=== PATIENT | male | born 1975 | race Hispanic/Latino ===

== ENCOUNTER 2021-06-11 16:52 | Inpatient (IN) | payer MEDICAID ==
[2021-06-11 21:17] LABS: Alanine Aminotransferase 14 units/L (7-56); BUN/Creatinine Ratio 12; Blood Urea Nitrogen 11 mg/dL (9-20); Calcium 9.5 mg/dL (8.4-10.2); Chol/HDL Ratio 4.71 %; HDL Cholesterol 38 mg/dL (40-59); Hemolysis Index 11; LDL Cholesterol,Direct 132 mg/dL (50-130)
[2021-06-11 21:19] LABS: Basophils # (Auto) 0.1 K/mm3 (0.0-0.1); Basophils % (Auto) 1.1 % (0.0-1.8); Eosinophils # (Auto) 0.6 K/mm3 (0.0-0.4); Eosinophils % (Auto) 12.5 % (0.0-4.3); Hematocrit 49.1 % (35.5-45.6); Hemoglobin 16.6 gm/dl (11.8-15.2); Lymphocytes # (Auto) 1.2 K/mm3 (1.2-5.4); Lymphocytes % (Auto) 25.1 % (13.4-35.0); Mean Corpuscular HGB Conc 34 % (32-34); Mean Corpuscular Volume 90 fl (84-94); Monocytes # (Auto) 0.5 K/mm3 (0.0-0.8); Monocytes % (Auto) 9.3 % (0.0-7.3); Platelet Count 217 K/mm3 (140-440); Red Blood Count 5.44 M/mm3 (3.65-5.03); Red Cell Distribution Width 13.5 % (13.2-15.2)
[2021-06-11] MEDS: DOXEPIN 10 MG CAP PO SCH (21:31)
[2021-06-11 21:38] LABS: Albumin 4.8 g/dL (3.9-5)
--- NOTE | 2021-06-12 09:59 | History and Physical Report ---
GP History & Physical - History of Present Illness Date of admission: 06/11/21 Date of Examination: 06/12/21 Reason for Admission: Danger to self, Failure of Outpatient Treatment History of Present Illness: Per Admission Note: Patient arrived on the unit at 1948. He arrived by stretcher and EMS. He states he went to the hospital to find out what is wrong with his right side and right leg. He states they sent him here for his bipolar. Patient states he tells them that he will not take psych meds because he [place] and if he has psych meds in him it is the same as driving drunk. Patient states he took 10-15 Gabapentin but he was not trying to kill himself. He states he was trying to make the pain in his right side go away. Paula Bauer is a 45y/o male patient who states he was admitted due to his leg and taking too many pills to stop the pain. He says he's depressed due to the pain. He is anxious and irritable. He says "I took pain meds trying to ease the pain. He says when I get out of here I'm going to take some more. I'm dying in all this pain. The patient says he can barely move his leg, and is having groin pain. He says he fell backward at work and hurt his leg. He denies being on any psych meds. He also denies any illicit drug use outside of weed. He denies hallucinations of any kind. The patient says he has a history bipolar but he doesn't take any meds. He says "I don't like these types of doctors." He denies hallucinations of any kind. Discussed the patient leg and groin pain with the nurse and advised her to let the [place] [facility] hospitalist know. She says she has already made the hospitalist aware of the patient's concerns and symptoms. PAST PSYCHIATRIC HISTORY: Diagnoses: Bipolar Suicide attempts or Self-harm behavior: Denies Prior psychiatric hospitalizations: Denies Substance Abuse history: "Roca" Previous psychiatric medications tried: Denies Outpatient treatment: Denies PAST MEDICAL HISTORY: None reported or document Family Psychiatric History: None reported or documented SOCIAL HISTORY Marital Status: Single Living Arrangements: with family Employment Status: Disabled Access to guns/weapons: denies Education: History of Abuse: denies Legal History: denies REVIEW OF SYSTEMS Constitutional: Negative for weight loss ENT: Negative for stridor Respiratory: Negative for cough or hemoptysis All other systems reviewed and are negative MENTAL STATUS EXAMINATION General Appearance and Behavior: Age appropriate, wearing appropriate clothes, cooperative, good eye contact, irritable at times Cooperation: cooperative Psychomotor Behavior: Psychomotor normal Mood: depressed Affect and affective range: congruent with stated mood Thought Process: impaired Thought Content: SI, depression Speech: Normal volume, Regular rate and rhythm Suicidal Ideation: Yes due to pain Homicidal Ideation: Denies hallucination: Denies Delusions: None elicited Impulse Control: Intact Insight and Judgment: Poor Memory: Intact Attention: Divided Orientation: Alert and oriented Diagnoses: Bipolar Disorder Treatment Plan Patient admitted for inpatient psychiatric evaluation, medication adjustment and close monitoring The patient's behavior, mood, sleep and appetite will be closely monitored. Patient enrolled in individual and group therapeutic sessions and encouraged to attend. Patient provided with a safe and structured environment. Patient's physical health needs will be addressed by the Hospitalist. Hospitalist Consulted Labs including CBC, CMP, Lipid profile and Hemoglobin A1C levels ordered for baseline reference Social Assessment will be completed and the Asset Management Analyst will work with patient and family to ensure a suitable and safe disposition Medication adjustment will be made as clinically indicated Start Cymbalta 30mg po daily Start Vistaril 25mg po BID Doxepin 10mg po qhs for insomnia Usual Wellness Catholic/Preservation: - Start Trazodone 50 mg po QHS & 50 mg po QHS PRN between 10 PM & 2 AM for insomnia - Start Melatonin 5 mg po QHS to promote circadian rhythm The patient agreed on the treatment plan, understood the risk, benefit, alternative treatment, potential consequence of no treatment, and gave informed consent. Estimated days: 7 Post hospital care: primary care provider, psychiatric provider Case staffed with Dr. Patel Legal Status: Voluntary Reaction to Hospitalization: Accepting Medications and Allergies Allergies Allergy/AdvReac Type Severity Reaction Status Date / Time orange Allergy Severe Anaphylaxis Verified 06/12/21 03:31 trazodone Allergy Intermediate Itching Verified 06/12/21 03:28 ketorolac [From Toradol] Allergy Mild Itching Verified 06/12/21 03:28 ascorbic acid Allergy Anaphylaxis Verified 06/12/21 07:26 cyclobenzaprine AdvReac Intermediate Nausea Verified 06/11/21 20:14 [From Flexeril] hyoscyamine [From Levsin] AdvReac Intermediate Nausea Verified 06/11/21 20:15 naproxen [From Naprosyn] AdvReac Intermediate Vomiting Verified 06/11/21 20:16 tramadol AdvReac Mild Itching Verified 06/12/21 03:26 Home Medications Medication Instructions Recorded Confirmed Last Taken Type No Known Home Medications [No 06/11/21 06/11/21 Unknown History Reported Home Medications] Active Meds: Active Medications Doxepin HCl (Doxepin 10 Mg Cap) 10 mg PO QHS [facility] Last Admin: 06/11/21 21:31 Dose: 10 mg Documented by: Nicotine (Nicotine 21 Mg/24 Hr Patch) 21 mg TD QDAY [facility] Results - Results Labs/Vitals: Laboratory Last Values WBC 4.9 K/mm3 (4.5-11.0) 06/11/21 20:43 RBC 5.44 M/mm3 (3.65-5.03) H 06/11/21 20:43 Hgb 16.6 gm/dl (11.8-15.2) H 06/11/21 20:43 Hct 49.1 % (35.5-45.6) H 06/11/21 20:43 MCV 90 fl (84-94) 06/11/21 20:43 MCH 31 pg (28-32) 06/11/21 20:43 MCHC 34 % (32-34) 06/11/21 20:43 RDW 13.5 % (13.2-15.2) 06/11/21 20:43 Plt Count 217 K/mm3 (140-440) 06/11/21 20:43 Lymph % (Auto) 25.1 % (13.4-35.0) 06/11/21 20:43 [place] % (Auto) 9.3 % (0.0-7.3) H 06/11/21 20:43 Eos % (Auto) 12.5 % (0.0-4.3) H 06/11/21 20:43 Baso % (Auto) 1.1 % (0.0-1.8) 06/11/21 20:43 Lymph # (Auto) 1.2 K/mm3 (1.2-5.4) 06/11/21 20:43 [place] # (Auto) 0.5 K/mm3 (0.0-0.8) 06/11/21 20:43 Eos # (Auto) 0.6 K/mm3 (0.0-0.4) H 06/11/21 20:43 Baso # (Auto) 0.1 K/mm3 (0.0-0.1) 06/11/21 20:43 Seg Neutrophils % 52.0 % (40.0-70.0) 06/11/21 20:43 Seg Neutrophils # 2.5 K/mm3 (1.8-7.7) 06/11/21 20:43 Sodium 139 mmol/L (137-145) 06/11/21 20:43 Potassium 4.9 mmol/L (3.6-5.0) 06/11/21 20:43 Chloride 101.6 mmol/L (98-107) 06/11/21 20:43 Carbon Dioxide 29 mmol/L (22-30) 06/11/21 20:43 Anion Gap 13 mmol/L 06/11/21 20:43 BUN 11 mg/dL (9-20) 06/11/21 20:43 Creatinine 0.9 mg/dL (0.8-1.3) 06/11/21 20:43 Estimated GFR > 60 ml/min 06/11/21 20:43 BUN/Creatinine Ratio 12 % 06/11/21 20:43 Glucose 92 mg/dL (75-100) 06/11/21 20:43 POC Glucose 95 mg/dL (70-105) 06/12/21 06:14 Hemoglobin A1c 5.1 % (4-6) 06/11/21 20:43 Calcium 9.5 mg/dL (8.4-10.2) 06/11/21 20:43 Total Bilirubin 0.30 mg/dL (0.1-1.2) 06/11/21 20:43 AST 17 units/L (5-40) 06/11/21 20:43 ALT 14 units/L (7-56) 06/11/21 20:43 Alkaline Phosphatase 78 units/L (35-129) 06/11/21 20:43 Total Protein 7.3 g/dL (6.3-8.2) 06/11/21 20:43 Albumin 4.8 g/dL (3.9-5) 06/11/21 20:43 Albumin/Globulin Ratio 1.9 % 06/11/21 20:43 Triglycerides 162 mg/dL (2-149) H 06/11/21 20:43 Cholesterol 179 mg/dL (50-199) 06/11/21 20:43 LDL Cholesterol Direct 132 mg/dL (50-130) H 06/11/21 20:43 HDL Cholesterol 38 mg/dL (40-59) L 06/11/21 20:43 Cholesterol/HDL Ratio 4.71 % 06/11/21 20:43 TSH 1.030 mlU/mL (0.270-4.200) 06/11/21 20:43 Last Vital Signs Temp 98.8 F 06/11/21 22:00 Pulse 95 H 06/11/21 22:00 Resp 18 06/11/21 22:00 BP 117/75 06/11/21 22:00 Pulse Ox 100 06/11/21 22:00 Physical Examination - Constitutional Vitals: Vital Signs Temp Pulse Resp BP Pulse Ox 98.8 F 95 H 18 117/75 100 06/11/21 22:00 06/11/21 22:00 06/11/21 22:00 06/11/21 22:00 06/11/21 22:00 Temperature -Last 24 Hours Temperature 98.8 F Mental Status Exam - Vital signs Last Vital Signs Temp 98.8 F 06/11/21 22:00 Pulse 95 H 06/11/21 22:00 Resp 18 06/11/21 22:00 BP 117/75 06/11/21 22:00 Pulse Ox 100 06/11/21 22:00 Physician Certification - Certification Statement Physician Certification Statement: This is an acknowledgement statement that PAULA BAUER is a 45 year old M who requires inpatient psychiatric admission for treatment which could reasonably be expected to improve the patient's condition for Estimated period of time patient will need to remain in the hospital: [ ] Plan for post-hospital care: [ ]
[2021-06-12] MEDS: NICOTINE 21 MG/24 HR PATCH TD SCH (10:21)
--- NOTE | 2021-06-12 13:25 | Consultation ---
History of Present Illness - Reason for Consult Consult date: 06/12/21 Medical Management Requesting physician: GREG ADAMS - History of Present Illness 45 YO Male with MDD, Seasonal Allergies, Bipolar Disorder admitted to [facility] unit for psychiatric stabilization. Consult placed by Dr. Adams for medical management. Patient seen and evaluated in the recreation room. Patient denies fever, chills, chest pain, palpitation, productive cough, skin rash, recent contact, or known exposure to COVID-19. No reported nursing events. Patient denies pain at this time. Past History Past Medical History: other (See HPI) Past Surgical History: No surgical history, Other (Reviewed) Social history: single. denies: smoking, alcohol abuse Family history: hypertension Medications and Allergies Allergies Allergy/AdvReac Type Severity Reaction Status Date / Time orange Allergy Severe Anaphylaxis Verified 06/12/21 03:31 trazodone Allergy Intermediate Itching Verified 06/12/21 03:28 ketorolac [From Toradol] Allergy Mild Itching Verified 06/12/21 03:28 ascorbic acid Allergy Anaphylaxis Verified 06/12/21 07:26 cyclobenzaprine AdvReac Intermediate Nausea Verified 06/11/21 20:14 [From Flexeril] hyoscyamine [From Levsin] AdvReac Intermediate Nausea Verified 06/11/21 20:15 naproxen [From Naprosyn] AdvReac Intermediate Vomiting Verified 06/11/21 20:16 tramadol AdvReac Mild Itching Verified 06/12/21 03:26 Home Medications Medication Instructions Recorded Confirmed Last Taken Type Doxepin [SINEquan] 10 mg PO QHS 30 Days #30 capsule 06/15/21 Unknown Rx hydrOXYzine PAMOATE [Vistaril] 25 mg PO BID 30 Days #60 capsule 06/15/21 Unknown Rx Active Meds: Active Medications Doxepin HCl (Doxepin 10 Mg Cap) 10 mg PO QHS [facility] Last Admin: 06/11/21 21:31 Dose: 10 mg Documented by: Duloxetine HCl (Duloxetine 30 Mg Cap) 30 mg PO QDAY [facility] Hydroxyzine Pamoate (Hydroxyzine Pamoate 25 Mg Cap) 25 mg PO BID [facility] Nicotine (Nicotine 21 Mg/24 Hr Patch) 21 mg TD QDAY [facility] Last Admin: 06/12/21 10:21 Dose: 21 mg Documented by: Review of Systems Constitutional: no weight loss, no weight gain, no fever, no chills Ears, nose, mouth and throat: no ear pain, no ear discharge, no tinnitis, no decreased hearing, no nose pain, no nasal discharge Cardiovascular: no chest pain, no palpitations, no rapid/irregular heart beat, n o syncope, no lightheadedness Respiratory: no cough, no shortness of breath Gastrointestinal: no abdominal pain, no nausea, no diarrhea, no constipation, no change in bowel habits Genitourinary Male: no hematuria, no flank pain, no discharge, no urinary frequency Rectal: no pain, no incontinence, no bleeding Musculoskeletal: no neck stiffness, no neck pain, no shooting arm pain, no shooting leg pain Integumentary: no rash, no pruritis, no redness, no sores, no wounds, no jaundice Neurological: no transient paralysis, no tingling, no syncope, no tremors, no ataxia Psychiatric: depression Endocrine: no cold intolerance, no polyphagia, no polydipsia, no polyuria, no nocturia Hematologic/Lymphatic: no easy bruising, no easy bleeding, no lymphadenopathy Allergic/Immunologic: no urticaria, no allergic rhinitis, no persistent infections, no angioedema Exam - Constitutional Vitals: Temp Pulse Resp BP Pulse Ox 98.0 F 91 H 16 107/71 98 06/12/21 08:06 06/12/21 08:06 06/12/21 08:06 06/12/21 08:06 06/12/21 08:06 General appearance: Present: no acute distress, well-nourished - EENT Eyes: Present: PERRL ENT: hearing intact, clear oral mucosa - Neck Neck: Present: supple, normal ROM - Respiratory Respiratory effort: normal Respiratory: bilateral: CTA - Cardiovascular Heart Sounds: Present: S1 & S2. Absent: rub, click - Extremities Extremities: pulses symmetrical, No edema Peripheral Pulses: within normal limits - Abdominal General gastrointestinal: Present: soft, non-tender, non-distended, normal bowel sounds Male genitourinary: Present: normal - Integumentary Integumentary: Present: clear, warm, dry - Musculoskeletal Musculoskeletal: gait normal, strength equal bilaterally - Psychiatric Psychiatric: appropriate mood/affect, intact judgment & insight - Neurologic Neurologic: CNII-XII intact, moves all extremities Results - Labs CBC & Chem 7: 06/11/21 20:43 06/11/21 20:43 Labs: Abnormal lab results 06/11/21 06/11/21 Range/Units 20:43 20:43 RBC 5.44 H (3.65-5.03) M/mm3 Hgb 16.6 H (11.8-15.2) gm/dl Hct 49.1 H (35.5-45.6) % [place] % (Auto) 9.3 H (0.0-7.3) % Eos % (Auto) 12.5 H (0.0-4.3) % Eos # (Auto) 0.6 H (0.0-0.4) K/mm3 Triglycerides 162 H (2-149) mg/dL LDL Cholesterol Direct 132 H (50-130) mg/dL HDL Cholesterol 38 L (40-59) mg/dL Assessment and Plan - Patient Problems (1) MDD (major depressive disorder) Status: Acute Qualifiers: Psychotic features: with psychotic features Plan to address problem: Supportive care, continue medical management. (2) Seasonal allergies Status: Acute Plan to address problem: Antihistamine therapy as clinically indicated, supportive care. (3) Bipolar disorder Status: Acute Plan to address problem: Continue current therapy, supportive care.
--- NOTE | 2021-06-12 17:11 | Cat Scan Report ---
CT ABDOMEN AND PELVIS WITH CONTRAST HISTORY: Abdomen and groin pain. COMPARISON: None TECHNIQUE: Routine abdominal and pelvic CT exam performed following intravenous contrast administrat ion.. All CT scans at this location are performed using CT dose reduction for ALARA by means of autom ated exposure control. FINDINGS: CT ABDOMEN: Lung Bases: No significant abnormality. Liver: Small hypoattenuating area in the right hepatic dome is likely a small cyst but too small to c ompletely characterize. Biliary: No significant abnormality. Spleen: No significant abnormality. Unenlarged. Pancreas: No significant abnormality. Adrenals: No significant abnormality. Kidneys: No significant abnormality. Lymphatics: No lymphadenopathy. Vasculature: No significant abnormality. Bowel/Peritoneum: No significant abnormality. No free air. No free fluid. Normal appendix. CT PELVIC: : No significant abnormality. Lymphatics: No lymphadenopathy. Osseous Structures: No aggressive appearing osseous lesions. Additional Findings: None IMPRESSION: 1. No acute findings or findings to explain this patient's symptoms. Signer Name: Dontae Del Valle MD Signed: 06/12/2021 5:07 PM Workstation Name: [id number]
[2021-06-12] MEDS: DOXEPIN 10 MG CAP PO SCH ×2 (21:16→21:17)
[2021-06-12] MEDS: hydrOXYzine PAMOATE 25 MG CAP PO SCH (21:16)
[2021-06-13] MEDS: hydrOXYzine PAMOATE 25 MG CAP PO SCH ×3 (09:04→21:02)
[2021-06-13] MEDS: DULoxetine 30 MG CAP PO SCH ×2 (09:05→19:32)
[2021-06-13] MEDS: NICOTINE 21 MG/24 HR PATCH TD SCH (09:06)
--- NOTE | 2021-06-13 09:22 | Progress Note ---
Subjective Date of service: 06/13/21 Principal diagnosis: bipolar disorder Subjective Comment: The patient was seen today, he says he's feeling alright but is complaining of pain to his leg. He denies SI/HI, but says "I took the pills due to the pain." The patient denies hallucinations. 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." REVIEW OF SYSTEMS Constitutional: Negative for weight loss ENT: Negative for stridor Respiratory: Negative for cough or hemoptysis All other systems reviewed and are negative MENTAL STATUS EXAMINATION General Appearance and Behavior: Age appropriate, wearing appropriate clothes, cooperative, good eye contact, irritable at times Cooperation: cooperative Psychomotor Behavior: Psychomotor normal Mood: depressed Affect and affective range: congruent with stated mood Thought Process: impaired Thought Content: SI, depression Speech: Normal volume, Regular rate and rhythm Suicidal Ideation: Yes due to pain Homicidal Ideation: Denies hallucination: Denies Delusions: None elicited Impulse Control: Intact Insight and Judgment: Poor Memory: Intact Attention: Divided Orientation: Alert and oriented Diagnoses: Bipolar Disorder Treatment Plan Patient admitted for inpatient psychiatric evaluation, medication adjustment and close monitoring The patient's behavior, mood, sleep and appetite will be closely monitored. Patient enrolled in individual and group therapeutic sessions and encouraged to attend. Patient provided with a safe and structured environment. Patient's physical health needs will be addressed by the Hospitalist. Hospitalist Consulted Labs including CBC, CMP, Lipid profile and Hemoglobin A1C levels ordered for baseline reference Social Assessment will be completed and the Senior Construction Estimator will work with patient and family to ensure a suitable and safe disposition Medication adjustment will be made as clinically indicated Increase Cymbalta 40mg po daily Usual Wellness Restorationism/Preservation: - Start Trazodone 50 mg po QHS & 50 mg po QHS PRN between 10 PM & 2 AM for insomnia - Start Melatonin 5 mg po QHS to promote circadian rhythm The patient agreed on the treatment plan, understood the risk, benefit, alternative treatment, potential consequence of no treatment, and gave informed consent. Estimated days: 7 Post hospital care: primary care provider, psychiatric provider Case staffed with Dr. Patel Medications and Allergies Allergies Allergy/AdvReac Type Severity Reaction Status Date / Time orange Allergy Severe Anaphylaxis Verified 06/12/21 03:31 trazodone Allergy Intermediate Itching Verified 06/12/21 03:28 ketorolac [From Toradol] Allergy Mild Itching Verified 06/12/21 03:28 ascorbic acid Allergy Anaphylaxis Verified 06/12/21 07:26 cyclobenzaprine AdvReac Intermediate Nausea Verified 06/11/21 20:14 [From Flexeril] hyoscyamine [From Levsin] AdvReac Intermediate Nausea Verified 06/11/21 20:15 naproxen [From Naprosyn] AdvReac Intermediate Vomiting Verified 06/11/21 20:16 tramadol AdvReac Mild Itching Verified 06/12/21 03:26 Home Medications Medication Instructions Recorded Confirmed Last Taken Type No Known Home Medications [No 06/11/21 06/11/21 Unknown History Reported Home Medications] Active Meds: Active Medications Doxepin HCl (Doxepin 10 Mg Cap) 10 mg PO QHS [facility] Last Admin: 06/12/21 21:17 Dose: Not Given Documented by: Duloxetine HCl (Duloxetine 30 Mg Cap) 30 mg PO QDAY [facility] Last Admin: 06/13/21 09:05 Dose: 30 mg Documented by: Hydroxyzine Pamoate (Hydroxyzine Pamoate 25 Mg Cap) 25 mg PO BID [facility] Last Admin: 06/13/21 09:04 Dose: 25 mg Documented by: Nicotine (Nicotine 21 Mg/24 Hr Patch) 21 mg TD QDAY [facility] Last Admin: 06/13/21 09:06 Dose: Not Given Documented by: Results - Results Labs/Vitals: Laboratory Last Values WBC 4.9 K/mm3 (4.5-11.0) 06/11/21 20:43 RBC 5.44 M/mm3 (3.65-5.03) H 06/11/21 20:43 Hgb 16.6 gm/dl (11.8-15.2) H 06/11/21 20:43 Hct 49.1 % (35.5-45.6) H 06/11/21 20:43 MCV 90 fl (84-94) 06/11/21 20:43 MCH 31 pg (28-32) 06/11/21 20:43 MCHC 34 % (32-34) 06/11/21 20:43 RDW 13.5 % (13.2-15.2) 06/11/21 20:43 Plt Count 217 K/mm3 (140-440) 06/11/21 20:43 Lymph % (Auto) 25.1 % (13.4-35.0) 06/11/21 20:43 [place] % (Auto) 9.3 % (0.0-7.3) H 06/11/21 20:43 Eos % (Auto) 12.5 % (0.0-4.3) H 06/11/21 20:43 Baso % (Auto) 1.1 % (0.0-1.8) 06/11/21 20:43 Lymph # (Auto) 1.2 K/mm3 (1.2-5.4) 06/11/21 20:43 [place] # (Auto) 0.5 K/mm3 (0.0-0.8) 06/11/21 20:43 Eos # (Auto) 0.6 K/mm3 (0.0-0.4) H 06/11/21 20:43 Baso # (Auto) 0.1 K/mm3 (0.0-0.1) 06/11/21 20:43 Seg Neutrophils % 52.0 % (40.0-70.0) 06/11/21 20:43 Seg Neutrophils # 2.5 K/mm3 (1.8-7.7) 06/11/21 20:43 Sodium 139 mmol/L (137-145) 06/11/21 20:43 Potassium 4.9 mmol/L (3.6-5.0) 06/11/21 20:43 Chloride 101.6 mmol/L (98-107) 06/11/21 20:43 Carbon Dioxide 29 mmol/L (22-30) 06/11/21 20:43 Anion Gap 13 mmol/L 06/11/21 20:43 BUN 11 mg/dL (9-20) 06/11/21 20:43 Creatinine 0.9 mg/dL (0.8-1.3) 06/11/21 20:43 Estimated GFR > 60 ml/min 06/11/21 20:43 BUN/Creatinine Ratio 12 % 06/11/21 20:43 Glucose 92 mg/dL (75-100) 06/11/21 20:43 POC Glucose 95 mg/dL (70-105) 06/12/21 06:14 Hemoglobin A1c 5.1 % (4-6) 06/11/21 20:43 Calcium 9.5 mg/dL (8.4-10.2) 06/11/21 20:43 Total Bilirubin 0.30 mg/dL (0.1-1.2) 06/11/21 20:43 AST 17 units/L (5-40) 06/11/21 20:43 ALT 14 units/L (7-56) 06/11/21 20:43 Alkaline Phosphatase 78 units/L (35-129) 06/11/21 20:43 Total Protein 7.3 g/dL (6.3-8.2) 06/11/21 20:43 Albumin 4.8 g/dL (3.9-5) 06/11/21 20:43 Albumin/Globulin Ratio 1.9 % 06/11/21 20:43 Triglycerides 162 mg/dL (2-149) H 06/11/21 20:43 Cholesterol 179 mg/dL (50-199) 06/11/21 20:43 LDL Cholesterol Direct 132 mg/dL (50-130) H 06/11/21 20:43 HDL Cholesterol 38 mg/dL (40-59) L 06/11/21 20:43 Cholesterol/HDL Ratio 4.71 % 06/11/21 20:43 TSH 1.030 mlU/mL (0.270-4.200) 06/11/21 20:43 Last Vital Signs Temp 98.5 F 06/13/21 06:53 Pulse 72 06/13/21 06:53 Resp 18 06/13/21 06:53 BP 108/72 06/13/21 06:53 Pulse Ox 94 06/13/21 06:53
[2021-06-13] MEDS: DULoxetine 20 MG CAP PO SCH (10:59)
[2021-06-13] MEDS: DOXEPIN 10 MG CAP PO SCH (21:02)
[2021-06-14] MEDS: DULoxetine 20 MG CAP PO SCH (09:22)
[2021-06-14] MEDS: hydrOXYzine PAMOATE 25 MG CAP PO SCH ×2 (09:22→21:04)
[2021-06-14] MEDS: NICOTINE 21 MG/24 HR PATCH TD SCH (09:22)
--- NOTE | 2021-06-14 12:09 | Progress Note ---
Subjective Date of service: 06/14/21 Principal diagnosis: bipolar disorder Subjective Comment: The patient was seen today, he is lying down in bed. He easily arouses. He says he's not feeling good and has a headache. The patient denies SI/HI. When asking about any hallucinations, he shouts "no." REVIEW OF SYSTEMS Constitutional: Negative for weight loss ENT: Negative for stridor Respiratory: Negative for cough or hemoptysis All other systems reviewed and are negative MENTAL STATUS EXAMINATION General Appearance and Behavior: Age appropriate, wearing appropriate clothes, cooperative, good eye contact, irritable at times Cooperation: cooperative Psychomotor Behavior: Psychomotor normal Mood: depressed Affect and affective range: congruent with stated mood Thought Process: impaired Thought Content: SI, depression Speech: Normal volume, Regular rate and rhythm Suicidal Ideation: Yes due to pain Homicidal Ideation: Denies hallucination: Denies Delusions: None elicited Impulse Control: Intact Insight and Judgment: Poor Memory: Intact Attention: Divided Orientation: Alert and oriented Diagnoses: Bipolar Disorder Treatment Plan Patient admitted for inpatient psychiatric evaluation, medication adjustment and close monitoring The patient's behavior, mood, sleep and appetite will be closely monitored. Patient enrolled in individual and group therapeutic sessions and encouraged to attend. Patient provided with a safe and structured environment. Patient's physical health needs will be addressed by the Hospitalist. Hospitalist Consulted Labs including CBC, CMP, Lipid profile and Hemoglobin A1C levels ordered for baseline reference Social Assessment will be completed and the Solder Making Laborer will work with patient and family to ensure a suitable and safe disposition Medication adjustment will be made as clinically indicated Continue Cymbalta 40mg po daily Usual Wellness Baptism/Preservation: - Start Trazodone 50 mg po QHS & 50 mg po QHS PRN between 10 PM & 2 AM for insomnia - Start Melatonin 5 mg po QHS to promote circadian rhythm The patient agreed on the treatment plan, understood the risk, benefit, alternative treatment, potential consequence of no treatment, and gave informed consent. Estimated days: 4 Post hospital care: primary care provider, psychiatric provider Case staffed with Dr. Patel Medications and Allergies Allergies Allergy/AdvReac Type Severity Reaction Status Date / Time orange Allergy Severe Anaphylaxis Verified 06/12/21 03:31 trazodone Allergy Intermediate Itching Verified 06/12/21 03:28 ketorolac [From Toradol] Allergy Mild Itching Verified 06/12/21 03:28 ascorbic acid Allergy Anaphylaxis Verified 06/12/21 07:26 cyclobenzaprine AdvReac Intermediate Nausea Verified 06/11/21 20:14 [From Flexeril] hyoscyamine [From Levsin] AdvReac Intermediate Nausea Verified 06/11/21 20:15 naproxen [From Naprosyn] AdvReac Intermediate Vomiting Verified 06/11/21 20:16 tramadol AdvReac Mild Itching Verified 06/12/21 03:26 Home Medications Medication Instructions Recorded Confirmed Last Taken Type No Known Home Medications [No 06/11/21 06/11/21 Unknown History Reported Home Medications] Active Meds: Active Medications Doxepin HCl (Doxepin 10 Mg Cap) 10 mg PO QHS COUNT INCLUDES THE [facility] Last Admin: 06/13/21 21:02 Dose: 10 mg Documented by: Duloxetine HCl (Duloxetine 20 Mg Cap) 40 mg PO QDAY COUNT INCLUDES THE [facility] Last Admin: 06/14/21 09:22 Dose: 40 mg Documented by: Hydroxyzine Pamoate (Hydroxyzine Pamoate 25 Mg Cap) 25 mg PO BID COUNT INCLUDES THE [facility] Last Admin: 06/14/21 09:22 Dose: 25 mg Documented by: Nicotine (Nicotine 21 Mg/24 Hr Patch) 21 mg TD QDAY COUNT INCLUDES THE [facility] Last Admin: 06/14/21 09:22 Dose: 21 mg Documented by: Results - Results Labs/Vitals: Laboratory Last Values WBC 4.9 K/mm3 (4.5-11.0) 06/11/21 20:43 RBC 5.44 M/mm3 (3.65-5.03) H 06/11/21 20:43 Hgb 16.6 gm/dl (11.8-15.2) H 06/11/21 20:43 Hct 49.1 % (35.5-45.6) H 06/11/21 20:43 MCV 90 fl (84-94) 06/11/21 20:43 MCH 31 pg (28-32) 06/11/21 20:43 MCHC 34 % (32-34) 06/11/21 20:43 RDW 13.5 % (13.2-15.2) 06/11/21 20:43 Plt Count 217 K/mm3 (140-440) 06/11/21 20:43 Lymph % (Auto) 25.1 % (13.4-35.0) 06/11/21 20:43 [place] % (Auto) 9.3 % (0.0-7.3) H 06/11/21 20:43 Eos % (Auto) 12.5 % (0.0-4.3) H 06/11/21 20:43 Baso % (Auto) 1.1 % (0.0-1.8) 06/11/21 20:43 Lymph # (Auto) 1.2 K/mm3 (1.2-5.4) 06/11/21 20:43 [place] # (Auto) 0.5 K/mm3 (0.0-0.8) 06/11/21 20:43 Eos # (Auto) 0.6 K/mm3 (0.0-0.4) H 06/11/21 20:43 Baso # (Auto) 0.1 K/mm3 (0.0-0.1) 06/11/21 20:43 Seg Neutrophils % 52.0 % (40.0-70.0) 06/11/21 20:43 Seg Neutrophils # 2.5 K/mm3 (1.8-7.7) 06/11/21 20:43 Sodium 139 mmol/L (137-145) 06/11/21 20:43 Potassium 4.9 mmol/L (3.6-5.0) 06/11/21 20:43 Chloride 101.6 mmol/L (98-107) 06/11/21 20:43 Carbon Dioxide 29 mmol/L (22-30) 06/11/21 20:43 Anion Gap 13 mmol/L 06/11/21 20:43 BUN 11 mg/dL (9-20) 06/11/21 20:43 Creatinine 0.9 mg/dL (0.8-1.3) 06/11/21 20:43 Estimated GFR > 60 ml/min 06/11/21 20:43 BUN/Creatinine Ratio 12 % 06/11/21 20:43 Glucose 92 mg/dL (75-100) 06/11/21 20:43 POC Glucose 95 mg/dL (70-105) 06/12/21 06:14 Hemoglobin A1c 5.1 % (4-6) 06/11/21 20:43 Calcium 9.5 mg/dL (8.4-10.2) 06/11/21 20:43 Total Bilirubin 0.30 mg/dL (0.1-1.2) 06/11/21 20:43 AST 17 units/L (5-40) 06/11/21 20:43 ALT 14 units/L (7-56) 06/11/21 20:43 Alkaline Phosphatase 78 units/L (35-129) 06/11/21 20:43 Total Protein 7.3 g/dL (6.3-8.2) 06/11/21 20:43 Albumin 4.8 g/dL (3.9-5) 06/11/21 20:43 Albumin/Globulin Ratio 1.9 % 06/11/21 20:43 Triglycerides 162 mg/dL (2-149) H 06/11/21 20:43 Cholesterol 179 mg/dL (50-199) 06/11/21 20:43 LDL Cholesterol Direct 132 mg/dL (50-130) H 06/11/21 20:43 HDL Cholesterol 38 mg/dL (40-59) L 06/11/21 20:43 Cholesterol/HDL Ratio 4.71 % 06/11/21 20:43 TSH 1.030 mlU/mL (0.270-4.200) 06/11/21 20:43 Last Vital Signs Temp 98.2 F 06/14/21 07:46 Pulse 62 06/14/21 08:00 Resp 20 06/14/21 07:46 BP 118/75 06/14/21 08:00 Pulse Ox 99 06/14/21 08:00
[2021-06-14] MEDS: DOXEPIN 10 MG CAP PO SCH (21:04)
--- NOTE | 2021-06-15 07:43 | Discharge Summary ---
Providers - Providers Date of Admission: 06/11/21 19:42 Date of discharge: 06/15/21 Attending physician: GREG ADAMS MD 06/11/21 19:42 Consult to Physician [CONS] Routine Comment: Consulting Provider: SUNITHA BUCKLEY Physician Instructions: Reason For Exam: manage medical conditions Primary care physician: EXAMINATION PROCTOR Hospitalization Reason for admission: Bipolar Condition: Stable Hospital course: The patient was provided inpatient psychiatric treatment with safe and supportive environment, group/individual therapy, psychiatric medication, medication adjustment, adverse effect monitor, medical evaluation, medical treatment, social service assessment, social support meeting, placement assessment and psycho-education. The patients mood, cognition, behavior, motivation, compliance to treatment and appreciation on family/social support are improved and stabilized. At the time of discharge, the patient had no suicidal ideas, no homicidal ideas, no aggressive thoughts, no endangering behavior and no debilitating adverse effects. The patient agreed on the treatment plan, understood the risk, benefit, alternative treatment, potential consequence of no treatment, and gave informed consent. Progress Notes: 06/13/2021: The patient was seen today, he says he's feeling alright but is complaining of pain to his leg. He denies SI/HI, but says "I took the pills due to the pain." The patient denies hallucinations. 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 He easily arouses. He says he's not feeling good and has a headache. The patient denies SI/HI. When asking about any hallucinations, he shouts "no." Disposition: DC-01 TO HOME OR SELFCARE Allergies/Adverse Reactions: Allergies orange Allergy (Severe, Verified 06/12/21 03:31) Anaphylaxis trazodone Allergy (Intermediate, Verified 06/12/21 03:28) Itching ketorolac [From Toradol] Allergy (Mild, Verified 06/12/21 03:28) Itching ascorbic acid Allergy (Verified 06/12/21 07:26) Anaphylaxis cyclobenzaprine [From Flexeril] Adverse Reaction (Intermediate, Verified 06/11/21 20:14) Nausea hyoscyamine [From Levsin] Adverse Reaction (Intermediate, Verified 06/11/21 20:15) Nausea naproxen [From Naprosyn] Adverse Reaction (Intermediate, Verified 06/11/21 20:16) Vomiting tramadol Adverse Reaction (Mild, Verified 06/12/21 03:26) Itching Vital Signs: Last Vital Signs Temp 98.7 F 06/14/21 19:35 Pulse 75 06/14/21 19:35 Resp 16 06/14/21 19:35 BP 112/68 06/14/21 19:35 Pulse Ox 95 06/14/21 19:35 Last Lab: Laboratory Last Values WBC 4.9 K/mm3 (4.5-11.0) 06/11/21 20:43 RBC 5.44 M/mm3 (3.65-5.03) H 06/11/21 20:43 Hgb 16.6 gm/dl (11.8-15.2) H 06/11/21 20:43 Hct 49.1 % (35.5-45.6) H 06/11/21 20:43 MCV 90 fl (84-94) 06/11/21 20:43 MCH 31 pg (28-32) 06/11/21 20:43 MCHC 34 % (32-34) 06/11/21 20:43 RDW 13.5 % (13.2-15.2) 06/11/21 20:43 Plt Count 217 K/mm3 (140-440) 06/11/21 20:43 Lymph % (Auto) 25.1 % (13.4-35.0) 06/11/21 20:43 [place] % (Auto) 9.3 % (0.0-7.3) H 06/11/21 20:43 Eos % (Auto) 12.5 % (0.0-4.3) H 06/11/21 20:43 Baso % (Auto) 1.1 % (0.0-1.8) 06/11/21 20:43 Lymph # (Auto) 1.2 K/mm3 (1.2-5.4) 06/11/21 20:43 [place] # (Auto) 0.5 K/mm3 (0.0-0.8) 06/11/21 20:43 Eos # (Auto) 0.6 K/mm3 (0.0-0.4) H 06/11/21 20:43 Baso # (Auto) 0.1 K/mm3 (0.0-0.1) 06/11/21 20:43 Seg Neutrophils % 52.0 % (40.0-70.0) 06/11/21 20:43 Seg Neutrophils # 2.5 K/mm3 (1.8-7.7) 06/11/21 20:43 Sodium 139 mmol/L (137-145) 06/11/21 20:43 Potassium 4.9 mmol/L (3.6-5.0) 06/11/21 20:43 Chloride 101.6 mmol/L (98-107) 06/11/21 20:43 Carbon Dioxide 29 mmol/L (22-30) 06/11/21 20:43 Anion Gap 13 mmol/L 06/11/21 20:43 BUN 11 mg/dL (9-20) 06/11/21 20:43 Creatinine 0.9 mg/dL (0.8-1.3) 06/11/21 20:43 Estimated GFR > 60 ml/min 06/11/21 20:43 BUN/Creatinine Ratio 12 % 06/11/21 20:43 Glucose 92 mg/dL (75-100) 06/11/21 20:43 POC Glucose 95 mg/dL (70-105) 06/12/21 06:14 Hemoglobin A1c 5.1 % (4-6) 06/11/21 20:43 Calcium 9.5 mg/dL (8.4-10.2) 06/11/21 20:43 Total Bilirubin 0.30 mg/dL (0.1-1.2) 06/11/21 20:43 AST 17 units/L (5-40) 06/11/21 20:43 ALT 14 units/L (7-56) 06/11/21 20:43 Alkaline Phosphatase 78 units/L (35-129) 06/11/21 20:43 Total Protein 7.3 g/dL (6.3-8.2) 06/11/21 20:43 Albumin 4.8 g/dL (3.9-5) 06/11/21 20:43 Albumin/Globulin Ratio 1.9 % 06/11/21 20:43 Triglycerides 162 mg/dL (2-149) H 06/11/21 20:43 Cholesterol 179 mg/dL (50-199) 06/11/21 20:43 LDL Cholesterol Direct 132 mg/dL (50-130) H 06/11/21 20:43 HDL Cholesterol 38 mg/dL (40-59) L 06/11/21 20:43 Cholesterol/HDL Ratio 4.71 % 06/11/21 20:43 TSH 1.030 mlU/mL (0.270-4.200) 06/11/21 20:43 Core Measure Documentation - Palliative Care Palliative Care/ Comfort Measures: Not Applicable - Core Measures Any of the following diagnoses?: none - VTE Discharge Requirements Deep Vein Thrombosis/Pulmonary Embolism Present on Admission: No Exam - Constitutional Vitals: Temp Pulse Resp BP Pulse Ox 98.7 F 75 16 112/68 95 06/14/21 19:35 06/14/21 19:35 06/14/21 19:35 06/14/21 19:35 06/14/21 19:35 General appearance: Present: no acute distress - Psychiatric Psychiatric: appropriate mood/affect, cooperative Plan Activity: advance as tolerated Weight Bearing Status: Weight Bear as Tolerated Diet: regular Care Plan Goals: Maintain good and stable mental health. Plan of Treatment: The patient should be compliant with medications, not to use drugs and not to drink alcohol. The patient understands that if suicidal ideas, homicidal ideas, or any endangering thoughts arise, the patient should immediately seek for emergent assistance including but not limited to crisis hot line and emergency room. Follow up with outpatient Psychiatrist and PCP within 7 - 14 days of discharge. Follow up with: PRIMARY CARE, [Primary Care Provider] - 7 Days Prescriptions: Doxepin [SINEquan] 10 mg PO QHS 30 Days #30 capsule hydrOXYzine PAMOATE [Vistaril] 25 mg PO BID 30 Days #60 capsule Pending Studies .
[2021-06-15] MEDS ORDERED: DULoxetine 20 MG CAP PO SCH (10:00)
[2021-06-15 10:03] VITALS: BP 117/67
[2021-06-15] MEDS: hydrOXYzine PAMOATE 25 MG CAP PO SCH (10:03)
[2021-06-15] MEDS: NICOTINE 21 MG/24 HR PATCH TD SCH (10:04)
== END 2021-06-15 13:45 | disposition home or self-care (01) | DRG 885 ==
LOC: 3A 16:52 → UNDOADMIN 16:52 → 5A 19:42
PROVIDERS: ADMIT Psychiatry & Neurology Psychiatry; ATTEND Psychiatry & Neurology Psychiatry
DX: F31.9 Bipolar disorder, unspecified (principal); Z88.8 Allergy status to other drugs, medicaments and biological substances; Z79.899 Other long term (current) drug therapy
CPT/HCPCS: 36415; 74177; 80053; 80061; 82962; 83036; 84443; 85025; G0378; Q0177; Q9967